=== PATIENT | male | born 1980 | race Hispanic/Latino ===

== ENCOUNTER 2019-12-31 20:34 | Emergency (ER) | payer BC ==
[2019-12-31] MEDS ORDERED: ONDANSETRON ODT 4 MG TAB ONE (21:31)
[2019-12-31] MEDS ORDERED: HYDROMORPHONE 1 MG/1 ML AMP ONE (21:32)
[2019-12-31] MEDS ORDERED: HYDROCODONE/ACETAMINOPHEN 5/325 MG TAB ONE (23:07)
== END 2019-12-31 23:16 | disposition home or self-care (01) ==
LOC: EDH 20:34
DX: S52.501A Unspecified fracture of the lower end of right radius, initial encounter for closed fracture (principal); S52.611A Displaced fracture of right ulna styloid process, initial encounter for closed fracture; E11.9 Type 2 diabetes mellitus without complications; I10 Essential (primary) hypertension; Z87.891 Personal history of nicotine dependence; W18.39XA Other fall on same level, initial encounter; Y93.89 Activity, other specified; Y92.89 Other specified places as the place of occurrence of the external cause; Y99.8 Other external cause status
CPT/HCPCS: 29125; 73110; 96372; 99284; J1170

== ENCOUNTER 2021-07-18 20:42 | Emergency (ER) | payer BC ==
[~2021-07-18] VITALS: Ht 177.8 cm; Wt 163.3 kg
[2021-07-18 20:49] VITALS: BP 138/71
== END 2021-07-18 22:53 | disposition home or self-care (01) ==
LOC: EDH 20:42
DX: I83.891 Varicose veins of right lower extremity with other complications (principal)
CPT/HCPCS: 99281